=== PATIENT | female | born 1950 ===

== ENCOUNTER 2016-11-28 14:11 | Emergency (ER) | payer OTHER ==
[2016-11-28 14:26] VITALS: TEMP 99.4
--- NOTE | 2016-11-28 14:29 | ED PDOC ---
Arrival/HPI - General Time Seen by Provider: 11/28/16 14:15 Historian: Patient - History of Present Illness Narrative History of Present Illness (Text): 11/28/16 14:25 A 66 year old female, whose past medical history includes diabetes, hypertension and hyperlipidemia, presents to the emergency department complaining of intermittent abdominal pain for the past month. Patient reports her last bowel movement was this morning. Patient denies any fever, chills, loss of appetite, nausea, vomiting, diarrhea, hematuria, hematochezia, vaginal bleeding, chest pain, shortness of breath or any other complaints. Patient states she has been evaluated by her PMD but continues to experience abdominal discomfort. Patient is complaint with her medication. PMD: Dr. Zamora Time/Duration: Other (1 month) Symptom Course: Unchanged, Intermittent Quality: Other Context: Home Past Medical History - Provider Review Nursing Documentation Reviewed: Yes Family/Social History - Physician Review Nursing Documentation Reviewed: Yes Family/Social History: No Known Family HX Allergies/Home Meds Allergies/Adverse Reactions: Allergies No Known Allergies Allergy (Verified 11/28/16 14:26) Home Medications: Home Meds Medication Instructions Recorded Confirmed Glipizide [Glipizide Xl] 5 mg PO DAILY 11/28/16 11/28/16 Insulin Aspart [Novolog Flexpen] 15 unit INJ BID 11/28/16 11/28/16 MetFORMIN [glucoPHAGE] 1,000 mg PO BID 11/28/16 11/28/16 Simvastatin [Zocor] 40 mg PO HS 11/28/16 11/28/16 amLODIPine [Norvasc] 4 mg PO DAILY 11/28/16 11/28/16 cloNIDine [Catapres] 0.2 mg PO BID 11/28/16 11/28/16 Review of Systems - Physician Review All systems were reviewed & negative as marked: Yes - Review of Systems Constitutional: absent: Fevers, Night Sweats Respiratory: absent: SOB Cardiovascular: absent: Chest Pain Gastrointestinal: Abdominal Pain. absent: Diarrhea, Nausea, Vomiting, Appetite Changes, Hematochezia Genitourinary Female: absent: Hematuria, Vaginal Bleeding Physical Exam Vital Signs Reviewed: Yes Vital Signs Temp Pulse Resp BP Pulse Ox 11/28/16 16:12 87 17 163/82 H 98 11/28/16 14:27 165/81 H 11/28/16 14:26 99.4 F 89 16 165/81 H 97 11/28/16 14:25 99.4 F 89 16 97 Temperature: Afebrile Blood Pressure: Hypertensive Pulse: Regular Respiratory Rate: Normal Appearance: Positive for: Well-Appearing, Non-Toxic, Comfortable Pain Distress: None Mental Status: Positive for: Alert and Oriented X 3 - Systems Exam Head: Present: Atraumatic, Normocephalic Pupils: Present: PERRL Extroacular Muscles: Present: EOMI Conjunctiva: Present: Normal Mouth: Present: Moist Mucous Membranes Neck: Present: Normal Range of Motion Respiratory/Chest: Present: Clear to Auscultation, Good Air Exchange. No: Respiratory Distress, Accessory Muscle Use Cardiovascular: Present: Regular Rate and Rhythm, Normal S1, S2. No: Murmurs Abdomen: Present: Normal Bowel Sounds, Scars (Old surgical scar). No: Tenderness, Distention, Peritoneal Signs Back: Present: Normal Inspection Upper Extremity: Present: Normal Inspection. No: Cyanosis, Edema Lower Extremity: Present: Normal Inspection. No: Edema Neurological: Present: GCS=15, CN II-XII Intact, Speech Normal Skin: Present: Warm, Dry, Normal Color. No: Rashes Psychiatric: Present: Alert, Oriented x 3, Normal Insight, Normal Concentration Medical Decision Making ED Course and Treatment: 11/28/16 14:25 Impression: A 66 year old female with intermittent abdominal discomfort. Patient denies nausea, vomiting or diarrhea. No tenderness on exam. Patient recently seen at [facility] for similar abdominal pain, will order CT abdomen and pelvis. Differential Diagnosis included but are not limited to: Chronic abdominal pain secondary to Old abdominal surgery vs. Enteritis vs. UTI Plan: -- Abdomen and pelvis CT -- Labs -- Urinalysis -- Pepcid -- Reassess and disposition Progress Notes: Report Date : 11/28/2016 17:30:43 Procedure: CT Abdomen and Pelvis with contrast Dictator : Mak Aceves MD Impression: No acute findings 11/28/16 17:49 Patient feels much better. She is no longer is having symptoms. After she drank the oral contrast she had several bowel movements that made her feel much better. She is tolerating PO fluids. No vomiting. She will make sure to follow up with her pmd this week. 11/28/16 17:50 She was advised to continue taking the mediations for her suspected UTI. - Lab Interpretations Lab Results: 11/28/16 14:59 11/28/16 14:59 Lab Results 11/28/16 14:59: Sodium 136, Potassium 3.6, Chloride 98, Carbon Dioxide 26, Anion Gap 16, BUN 23 H, Creatinine 1.2, Est GFR ( Amer) 55, Est GFR (Non- Af Amer) 45, Random Glucose 115 H, Calcium 10.0, Total Bilirubin 0.5, AST 32, ALT 32, Alkaline Phosphatase 96, Total Protein 7.7, Albumin 4.0, Globulin 3.7, Albumin/Globulin Ratio 1.1, Lipase 39 11/28/16 14:59: Urine Color Yellow, Urine Appearance Sl cloudy, Urine pH 6.0, Ur Specific [place] 1.025, Urine Protein 100 H, Urine Glucose (UA) Negative, Urine Ketones Trace H, Urine Blood Trace-intact H, Urine Nitrate Negative, Urine Bilirubin Negative, Urine Urobilinogen 0.2, Ur Leukocyte Esterase Moderate H, Urine RBC 0 - 2, Urine WBC 5 - 10, Ur Epithelial Cells 1 - 3, Urine Bacteria Small 11/28/16 14:59: WBC 6.6, RBC 4.11, Hgb 11.2 L, Hct 34.7 L, MCV 84.4, MCH 27.3, MCHC 32.3, RDW 13.4, Plt Count 308, MPV 8.9, Gran % 58.5, Lymph % (Auto) 28.4, [place] % (Auto) 10.7 H, Eos % (Auto) 2.1, Baso % (Auto) 0.3, Gran # 3.83, Lymph # 1.9, [place] # 0.7 H, Eos # 0.1, Baso # 0.02 I have reviewed the lab results: Yes - RAD Interpretation Radiology Orders: 11/28/16 14:26 ABD PELVIS PO & IV CONTRAST [CT] Stat - Medication Orders Current Medication Orders: Discontinued Medications Famotidine (Pepcid) 20 mg IVP STAT STA Stop: 11/28/16 14:27 Last Admin: 11/28/16 14:44 Dose: 20 mg Iohexol (Omnipaque 240 (50 Ml)) Confirm Administered Dose 50 ml .ROUTE .[facility]-MED ONE Stop: 11/28/16 14:33 Iohexol (Omnipaque 350 100 Ml) Confirm Administered Dose 350 mg .ROUTE .[facility]-MED ONE Stop: 11/28/16 16:05 - Scribe Statement The provider has reviewed the documentation as recorded by the Jasminibantione Zuleta Provider Scribe Attestation: All medical record entries made by the Scribe were at my direction and personally dictated by me. I have reviewed the chart and agree that the record accurately reflects my personal performance of the history, physical exam, medical decision making, and the department course for this patient. I have also personally directed, reviewed, and agree with the discharge instructions and disposition. Disposition/Present on Arrival - Present on Arrival Any Indicators Present on Arrival: No - Disposition Have Diagnosis and Disposition been Completed?: Yes Diagnosis: Abdominal pain Disposition: HOME/ ROUTINE Disposition Time: 17:51 Patient Plan: Discharge Patient Problems: Current Active Problems Problem Status Onset Abdominal pain Acute Condition: IMPROVED Discharge Instructions (ExitCare): Abdominal Pain (ED) Additional Instructions: Piyush, thank you for letting us take care of you today. Your provider was Dr. Torres. You were treated for Abdominal Pain. The emergency medical care you received today was directed at your acute symptoms. If you were prescribed any medication, please fill it and take as directed. It may take several days for your symptoms to resolve. Return to the Emergency Department if your symptoms worsen, do not improve, or if you have any other problems. Please contact your doctor or call one of the physicians/clinics you have been referred to that are listed on the Patient Visit Information form that is included in your discharge packet. Bring any paperwork you were given at discharge with you along with any medications you are taking to your follow up visit. Our treatment cannot replace ongoing medical care by a primary care provider (PCP) outside of the emergency department. Thank you for allowing the [facility] team to be part of your care today. If you had an X-Ray or CT scan: A Radiologist will review the ED reading if any change in treatment is needed we will contact you. If you had a blood, urine, or wound culture: It will take several days for the results, if any change in treatment is needed we will contact you. If you had an STI test: It will take 48 hours for the results. Please call after 1 week if you have not heard back. Prescriptions: Aluminum Hydroxide/Magnesium H [Maalox 30 ml] 30 ml PO Q8 #1 bottle Ranitidine HCl [Zantac] 150 mg PO BID PRN #30 tablet PRN Reason: Pain, Mild (1-3) Referrals: Millicent Zamora [Family Provider] - Follow up with primary Forms: [employer] [facility] ([place]ican)
[2016-11-28] MEDS ORDERED: Iohexol 240 (50 ml) ONE (14:32)
[2016-11-28 15:11] LABS: BASO # 0.02 K/mm3 (0.0-2.0); BASO % 0.3 % (0.0-3.0); EOS # 0.1 (0.0-0.7); EOS % 2.1 % (1.5-5.0); GRAN # 3.83 (1.4-6.5); GRAN % 58.5 % (50.0-68.0); HEMOGLOBIN 11.2 gm/dL (12.0-16.0); LYMPH # 1.9 (1.2-3.4); LYMPH % 28.4 % (22.0-35.0); MEAN CELL VOLUME 84.4 fL (80.0-105.0); MEAN CORPUSCULAR HEMOGLOBIN 27.3 pg (25.0-35.0); MEAN CORPUSCULAR HGB CONC 32.3 g/dl (31.0-37.0); MEAN PLATELET VOLUME 8.9 fl (7.0-11.0); MONO # 0.7 (0.1-0.6); MONO % 10.7 % (1.0-6.0); PLATELET COUNT 308 10^3/uL (120.0-450.0); RBC 4.11 10^6/uL (3.5-6.1); RED CELL DISTRIBUTION WIDTH 13.4 % (11.5-14.5); URINE BILIRUBIN NEGATIVE (NEGATIVE); URINE BLOOD TRACE-INTACT (NEGATIVE); URINE GLUCOSE (UA) NEGATIVE (NEGATIVE); URINE LEUKOCYTE ESTERASE MODERATE Leu/uL (NEGATIVE); URINE NITRATE NEGATIVE (NEGATIVE); URINE PROTEIN 100 mg/dL (<30 mg/dL); URINE UROBILINOGEN 0.2 E.U./dL (<1 E.U./dL); WHITE BLOOD COUNT 6.6 10^3/ul (4.5-11.0)
[2016-11-28 15:15] LABS: URINE APPEARANCE SL CLOUDY (CLEAR); URINE COLOR YELLOW (YELLOW)
[2016-11-28 15:20] LABS: ALB/GLOB RATIO 1.1 (1.1-1.8)
[2016-11-28 15:26] LABS: URINE BACTERIA SMALL (NEG); URINE RBC 0 - 2 /hpf (0-2)
[2016-11-28] MEDS ORDERED: Iohexol 350 MG/100 ML VIAL ONE (16:04)
[2016-11-28 16:36] VITALS: O2SAT 98
--- NOTE | 2016-11-28 17:32 | CT ---
PROCEDURE: CT Abdomen and Pelvis with contrast HISTORY: abd pain r/o obstruction/mass COMPARISON: None. TECHNIQUE: Contrast dose: 95 cc of Omni 350 Radiation dose: Total exam DLP = 1129 mGy-cm. This CT exam was performed using one or more of the following dose reduction techniques: Automated exposure control, adjustment of the mA and/or kV according to patient size, and/or use of iterative reconstruction technique. FINDINGS: LOWER THORAX: Unremarkable. LIVER: Unremarkable. No gross lesion or ductal dilatation. GALLBLADDER AND BILE DUCTS: Gallbladder removed PANCREAS: Unremarkable. No gross lesion or ductal dilatation. SPLEEN: Unremarkable. ADRENALS: Unremarkable. No mass. KIDNEYS AND URETERS: Unremarkable. No hydronephrosis. No solid mass. VASCULATURE: Unremarkable. No aortic aneurysm. BOWEL: Unremarkable. No obstruction. No gross mural thickening. APPENDIX: Normal appendix. PERITONEUM: Unremarkable. No free fluid. No free air. LYMPH NODES: Unremarkable. No enlarged lymph nodes. BLADDER: Unremarkable. REPRODUCTIVE: Unremarkable. BONES: No acute fracture. OTHER FINDINGS: There is atrophy of the right-sided spinal erector muscles IMPRESSION: No acute findings
[2016-11-28 17:59] VITALS: BP 162/80; PULSE 85; RESP 18
== END 2016-11-28 18:00 | disposition home or self-care (01) ==
LOC: MERGE 14:11 → ED 14:11
DX: R10.9 Unspecified abdominal pain (principal); I10 Essential (primary) hypertension; E78.5 Hyperlipidemia, unspecified
CPT/HCPCS: 74177; 80053; 81001; 83690; 85025; 87086; 96374; 99285; Q9966; Q9967

== ENCOUNTER 2016-12-03 10:57 | Emergency (ER) | payer OTHER ==
[2016-12-03 11:13] VITALS: RESP 18; TEMP 98.9; O2SAT 99; BMI 45.7
--- NOTE | 2016-12-03 11:34 | ED PDOC ---
Arrival/HPI <Cory Lerma - Last Filed: 12/03/16 12:52> - General Historian: Patient <VÍCOTR DANIELS - Last Filed: 12/03/16 12:57> - General Chief Complaint: Abdominal Pain Time Seen by Provider: 12/03/16 11:00 - History of Present Illness Narrative History of Present Illness (Text): 12/03/16 11:25 Pt is a 66 year old female with past medical history significant for Diabetes, Hypertension and Hyperlipidemia who presents to the emergency department via EMS from her PCP's office for abdominal pain and generalized weakness. She states that she has been experiencing abdominal pain for the past 5-6 weeks. She indicates the pain is mid-epigastric with out radiation. She reports it is tender to palpation and rated as 8/10 with palpation. She reports that her last bowel movement was five days ago. She denied darkened or bloody stool, or difficulty with passing the stool at that time. She admits to passing gas and tolerating oral and food intake. She denies fever, nausea, vomiting, hematemesis. Pt was recently seen and evaluated for abdominal pain at [facility] with in the past week. An abdominal U/S and abdomen and pelvic CT were preformed with out acute findings. Chart review indicated that the patient had been constipated and after drinking IV contrast she began to have multiple bowel movements that relieved her symptoms of abdominal pain. Patient states her presenting symptoms today are similar to previous visit to [facility] emergency department. (VÍCTOR DANIELS) Past Medical History - Provider Review Nursing Documentation Reviewed: Yes - Cardiac Hx Cardiac Disorders: Yes Hx Hypertension: Yes - Pulmonary Hx Respiratory Disorders: No (denies) - Neurological Hx Neurological Disorder: Yes Hx Transient Ischemic Attacks (TIA): Yes (2014) - HEENT Other/Comment: left eye difficulty seeing - glasses - Renal Hx Renal Disorder: No (denies) - Endocrine/Metabolic Hx Endocrine Disorders: Yes Hx Diabetes Mellitus Type 2: Yes - Hematological/Oncological Hx Blood Disorders: No (denies) - Integumentary Hx Dermatological Disorder: No (denies) - Gastrointestinal Hx Gastrointestinal Disorders: Yes Hx Gall Bladder Disease: Yes - Genitourinary/Gynecological Hx Genitourinary Disorders: No (denies) - Psychiatric Hx Psychophysiologic Disorder: Yes Hx Anxiety: Yes Hx Substance Use: No - Surgical History Other/Comment: gallstones 2003 - Anesthesia Hx Anesthesia: Yes <VÍCTOR DANIELS - Last Filed: 12/03/16 12:57> Family/Social History - Physician Review Nursing Documentation Reviewed: Yes Family/Social History: No Known Family HX Smoking Status: Never Smoked Hx Alcohol Use: No Hx Substance Use: No <VÍCTOR DANIELS - Last Filed: 12/03/16 12:57> Allergies/Home Meds <Cory Lerma - Last Filed: 12/03/16 12:52> <VÍCTOR DANIELS - Last Filed: 12/03/16 12:57> Allergies/Adverse Reactions: Allergies No Known Allergies Allergy (Verified 11/27/16 07:37) Home Medications: Home Meds Medication Instructions Recorded Confirmed GlipiZIDE [Glucotrol] 5 mg PO DAILY 11/27/16 11/27/16 MetFORMIN [glucOPHAGE] 1,000 mg PO DAILY 11/27/16 11/27/16 Simvastatin [Zocor] 20 mg PO DAILY 11/27/16 11/27/16 amLODIPine [Norvasc] 5 mg PO DAILY 11/27/16 11/27/16 cloNIDine [clonidine HCl] 0.2 mg PO BID 11/27/16 11/27/16 Glipizide [Glipizide Xl] 5 mg PO DAILY 11/28/16 11/28/16 Insulin Aspart [Novolog Flexpen] 15 unit INJ BID 11/28/16 11/28/16 MetFORMIN [glucoPHAGE] 1,000 mg PO BID 11/28/16 11/28/16 Simvastatin [Zocor] 40 mg PO HS 11/28/16 11/28/16 amLODIPine [Norvasc] 4 mg PO DAILY 11/28/16 11/28/16 cloNIDine [Catapres] 0.2 mg PO BID 11/28/16 11/28/16 Review of Systems - Physician Review All systems were reviewed & negative as marked: Yes - Review of Systems Constitutional: absent: Fatigue, Fevers Cardiovascular: absent: Chest Pain, Palpitations Gastrointestinal: Abdominal Pain, Constipation. absent: Nausea, Vomiting, Hematochezia, Hematemesis, Food Intolerance Genitourinary Female: absent: Dysuria, Frequency, Hematuria, Urine Output Changes Neurological: absent: Headache Endocrine: absent: Diaphoresis <VÍCTOR DANIELS - Last Filed: 12/03/16 12:57> Physical Exam Vital Signs Reviewed: Yes Temperature: Afebrile Blood Pressure: Hypertensive Pulse: Regular Respiratory Rate: Normal Appearance: Positive for: Well-Appearing Pain Distress: Mild Mental Status: Positive for: Alert and Oriented X 3 - Systems Exam Head: Present: Atraumatic, Normocephalic Pupils: Present: PERRL Extroacular Muscles: Present: EOMI Conjunctiva: Present: Normal Neck: Present: Normal Range of Motion. No: MIDLINE TENDERNESS Respiratory/Chest: Present: Clear to Auscultation, Good Air Exchange. No: Respiratory Distress, Accessory Muscle Use Cardiovascular: Present: Regular Rate and Rhythm, Normal S1, S2. No: Murmurs Abdomen: Present: Tenderness (mid epigastric). No: Distention, Normal Bowel Sounds (hypoactive), Peritoneal Signs Upper Extremity: Present: Normal Inspection. No: Cyanosis, Edema Lower Extremity: Present: Normal Inspection. No: Edema Neurological: Present: GCS=15, CN II-XII Intact, Speech Normal Skin: Present: Warm, Dry, Normal Color. No: Rashes Psychiatric: Present: Alert, Oriented x 3, Normal Insight, Normal Concentration <VÍCTOR DANIELS - Last Filed: 12/03/16 12:57> Vital Signs Temp Pulse Resp BP Pulse Ox 12/03/16 12:11 79 18 162/89 H 99 12/03/16 11:12 98.9 F 87 18 164/99 H 99 Medical Decision Making <Cory Lerma - Last Filed: 12/03/16 12:52> <VÍCTOR DANIELS - Last Filed: 12/03/16 12:57> ED Course and Treatment: A 66 year old female with abdominal pain. In agreement with resident note, which includes further HPI details. Patient was seen and evaluated with resident , came up with plan and treatment together. 12/03/16 12:52 Seen and examined with the resident. Our history and physical exam reveals a woman with chronic abdominal pain. Was seen in the emergency department last week and had unrevealing ultrasound and CT scan of the abdomen. She complains of abdominal pain and constipation for several days. She was seen in the office by her PMD this morning and directed to the emergency department. Her abdomen is soft and nontender with no guarding and no rebound. She is morbidly obese. ( Cory Lerma) 12/03/16 11:36 Impression: Pt is a 66 year old female with pmh significant for Diabetes, Hypertension, and Hyperlipidemia who complains of abdominal pain that has been ongoing for the past month. Differential Diagnosis included but are not limited to: - Constipation - SBO Plan: - Labs: CBC, CMP, Mg, Phos, Lipase, Urinalysis - Imaging: Obstruction series - Reassess and disposition Progress Notes: 12/03/16 12:35 - Abdominal xray shows no obstruction - Rectal exam with fecal disimpaction preformed patient reports she was able to pass small amount of stool immediately following (VÍCTOR DANIELS) - Lab Interpretations Lab Results: 12/03/16 11:45 12/03/16 11:45 Lab Results 12/03/16 11:45: Sodium 136, Potassium 3.7, Chloride 99, Carbon Dioxide 27, Anion Gap 14, BUN 20, Creatinine 1.0, Est GFR ( Amer) > 60, Est GFR (Non- Af Amer) 56, Random Glucose 161 H, Calcium 9.7, Phosphorus 3.5, Magnesium 2.1, Total Bilirubin 0.5, AST 43 H, ALT 39, Alkaline Phosphatase 120, Total Protein 7.6, Albumin 3.9, Globulin 3.6, Albumin/Globulin Ratio 1.1, Lipase 46 12/03/16 11:45: WBC 5.7, RBC 4.19, Hgb 11.6 L, Hct 35.5 L, MCV 84.7, MCH 27.7, MCHC 32.7, RDW 13.5, Plt Count 311, MPV 9.2, Gran % 66.6, Lymph % (Auto) 21.1 L , [place] % (Auto) 8.6 H, Eos % (Auto) 3.5, Baso % (Auto) 0.2, Gran # 3.78, Lymph # 1.2, [place] # 0.5, Eos # 0.2, Baso # 0.01 12/03/16 11:31: Urine Color Yellow, Urine Appearance Clear, Urine pH 6.5, Ur Specific [place] 1.015, Urine Protein 100 H, Urine Glucose (UA) Negative, Urine Ketones Negative, Urine Blood Negative, Urine Nitrate Negative, Urine Bilirubin Negative, Urine Urobilinogen 0.2, Ur Leukocyte Esterase Moderate H, Urine RBC Negative, Urine WBC 5 - 10, Ur Epithelial Cells 0 - 2, Urine Bacteria Few - RAD Interpretation Radiology Orders: 12/03/16 11:40 obstructive series [ABD 2 VIEWS (FLAT/UP OR DECUB)] [RAD] Stat - Scribe Statement The provider has reviewed the documentation as recorded by the Scribe <Cory Lerma - Last Filed: 12/03/16 12:52> - PA / SENIOR BOOKKEEPER / Resident Statement MD/DO has reviewed & agrees with the documentation as recorded. MD/DO has examined the patient and agrees with the treatment plan. <VÍCTOR DANIELS - Last Filed: 12/03/16 12:57> - Scribe Statement Jerica Zuleta Provider Scribe Attestation: All medical record entries made by the Scribe were at my direction and personally dictated by me. I have reviewed the chart and agree that the record accurately reflects my personal performance of the history, physical exam, medical decision making, and the department course for this patient. I have also personally directed, reviewed, and agree with the discharge instructions and disposition. (Cory Lerma) Disposition/Present on Arrival <Cory Lerma - Last Filed: 12/03/16 12:52> - Present on Arrival Any Indicators Present on Arrival: No History of DVT/PE: No History of Uncontrolled Diabetes: No Urinary Catheter: No History Surgical Site Infection Following: None - Disposition Have Diagnosis and Disposition been Completed?: Yes Disposition Time: 13:00 <VÍCTOR DANIELS - Last Filed: 12/03/16 12:57> - Disposition Diagnosis: Constipation Disposition: HOME/ ROUTINE Patient Problems: Current Active Problems Problem Status Onset Constipation Acute Condition: GOOD Additional Instructions: Mrs. Pickett, thank you for letting us take care of you today. Your provider was Dr. Daniels and Dr. Lerma. You were treated for constipation. The emergency medical care you received today was directed at your acute symptoms. If you were prescribed any medication, please fill it and take as directed. It may take several days for your symptoms to resolve. Return to the Emergency Department if your symptoms worsen, do not improve, or if you have any other problems. Please contact your doctor or call one of the physicians/clinics you have been referred to that are listed on the Patient Visit Information form that is included in your discharge packet. Bring any paperwork you were given at discharge with you along with any medications you are taking to your follow up visit. Our treatment cannot replace ongoing medical care by a primary care provider (PCP) outside of the emergency department. Thank you for allowing the [facility] team to be part of your care today. Follow up with your primary care provider Referrals: Millicent Zamora [Primary Care Provider] - Follow up with primary
[2016-12-03 11:47] LABS: PH,URINE 6.5 (4.7-8.0); URINE BILIRUBIN NEGATIVE (NEGATIVE); URINE BLOOD NEGATIVE (NEGATIVE); URINE GLUCOSE (UA) NEGATIVE (NEGATIVE); URINE LEUKOCYTE ESTERASE MODERATE Leu/uL (NEGATIVE); URINE NITRATE NEGATIVE (NEGATIVE); URINE PROTEIN 100 mg/dL (<30 mg/dL); URINE UROBILINOGEN 0.2 E.U./dL (<1 E.U./dL)
[2016-12-03 11:53] LABS: BASO # 0.01 K/mm3 (0.0-2.0); BASO % 0.2 % (0.0-3.0); EOS # 0.2 (0.0-0.7); EOS % 3.5 % (1.5-5.0); GRAN # 3.78 (1.4-6.5); GRAN % 66.6 % (50.0-68.0); HEMOGLOBIN 11.6 gm/dL (12.0-16.0); LYMPH # 1.2 (1.2-3.4); LYMPH % 21.1 % (22.0-35.0); MEAN CELL VOLUME 84.7 fL (80.0-105.0); MEAN CORPUSCULAR HEMOGLOBIN 27.7 pg (25.0-35.0); MEAN CORPUSCULAR HGB CONC 32.7 g/dl (31.0-37.0); MEAN PLATELET VOLUME 9.2 fl (7.0-11.0); MONO # 0.5 (0.1-0.6); MONO % 8.6 % (1.0-6.0); PLATELET COUNT 311 10^3/uL (120.0-450.0); RBC 4.19 10^6/uL (3.5-6.1); RED CELL DISTRIBUTION WIDTH 13.5 % (11.5-14.5); WHITE BLOOD COUNT 5.7 10^3/ul (4.5-11.0)
[2016-12-03 11:54] LABS: URINE APPEARANCE CLEAR (CLEAR); URINE COLOR YELLOW (YELLOW)
[2016-12-03 11:56] LABS: URINE BACTERIA FEW (NEG); URINE EPITHELIAL CELLS 0 - 2 /hpf (0-5); URINE RBC NEGATIVE /hpf (0-2)
[2016-12-03 11:59] LABS: ALB/GLOB RATIO 1.1 (1.1-1.8); ALBUMIN 3.9 g/dL (3.0-4.8); ALT/SGPT 39 U/L (7-56); AST/SGOT 43 U/L (15-39); BLOOD UREA NITROGEN 20 mg/dL (7-21); CALCIUM 9.7 mg/dL (8.4-10.5); GFR AFRICAN-AMERICAN > 60; GFR NON-AFRICAN AMERICAN 56; LIPASE 46 U/L (23-300); MAGNESIUM 2.1 mg/dL (1.7-2.2)
[2016-12-03 13:21] VITALS: BP 158/75; PULSE 75
--- NOTE | 2016-12-03 13:45 | RAD ---
HISTORY: constipation COMPARISON: No prior. FINDINGS: BOWEL: Normal. No obstruction. No free air. Residual contrast material is seen in multiple diverticula in the sigmoid colon BONES: Normal. OTHER FINDINGS: None. IMPRESSION: No active disease.
== END 2016-12-03 13:16 | disposition home or self-care (01) ==
LOC: ED 10:57
DX: K59.00 Constipation, unspecified (principal); I10 Essential (primary) hypertension; E11.9 Type 2 diabetes mellitus without complications

== ENCOUNTER 2016-12-10 13:38 | Emergency (ER) | payer OTHER ==
[2016-12-10 13:39] VITALS: BMI 45.7
[2016-12-10 13:47] VITALS: RESP 18; TEMP 98.3; O2SAT 100
--- NOTE | 2016-12-10 14:38 | ED PDOC ---
Arrival/HPI - General Historian: Patient - History of Present Illness Time/Duration: > week Symptom Onset: Gradual Symptom Course: Unchanged Context: Home <Andrew Deng - Last Filed: 12/10/16 16:44> <IoanaginaAlphonse - Last Filed: 12/10/16 19:04> - General Chief Complaint: Abdominal Pain Time Seen by Provider: 12/10/16 14:03 - History of Present Illness Narrative History of Present Illness (Text): 66 F with PMH of DM, HTN, HLD presents to ED with complaint of epigastric pain. Patient states this has been going on for last 2 weeks. She has been to ER 3 times for same problem. Patient had a CT scan done on 12/03 and was unremarkable. Patient reports that today she called the ambulance because she was experiencing the pain again. She has not been taking the medication she was discharged on previously. Pain is mild in the epigastric region without radiation. She has associated nausea. Patient is unsure if pain is associated with eating. She states she had 1 non-bloody, non-bilious episode of vomiting in ambulance. 12/10/16 16:44 (Andrew Deng) Past Medical History - Provider Review Nursing Documentation Reviewed: Yes - Travel History Have you recently traveled outside [place] w/in the past 3 mons?: No - Cardiac Hx Cardiac Disorders: Yes Hx Hypertension: Yes - Pulmonary Hx Respiratory Disorders: No (denies) - Neurological Hx Neurological Disorder: Yes Hx Transient Ischemic Attacks (TIA): Yes (2013) - HEENT Other/Comment: left eye difficulty seeing - glasses - Renal Hx Renal Disorder: No (denies) - Endocrine/Metabolic Hx Endocrine Disorders: Yes Hx Diabetes Mellitus Type 2: Yes - Hematological/Oncological Hx Blood Disorders: No (denies) - Integumentary Hx Dermatological Disorder: No (denies) - Gastrointestinal Hx Gastrointestinal Disorders: Yes Hx Gall Bladder Disease: Yes - Genitourinary/Gynecological Hx Genitourinary Disorders: No (denies) - Psychiatric Hx Psychophysiologic Disorder: Yes Hx Anxiety: Yes Hx Substance Use: No - Surgical History Other/Comment: gallstones 2003 - Anesthesia Hx Anesthesia: Yes <Andrew Deng - Last Filed: 12/10/16 16:44> Family/Social History - Physician Review Nursing Documentation Reviewed: Yes Family/Social History: Unknown Family HX Smoking Status: Never Smoked Hx Alcohol Use: No Hx Substance Use: No <CorazonjulietAndrew - Last Filed: 12/10/16 16:44> Allergies/Home Meds <CorazongregoriorameshAndrew - Last Filed: 12/10/16 16:44> <Hang Carrascoiy - Last Filed: 12/10/16 19:04> Allergies/Adverse Reactions: Allergies No Known Allergies Allergy (Verified 11/27/16 07:37) Home Medications: Home Meds Medication Instructions Recorded Confirmed GlipiZIDE [Glucotrol] 5 mg PO DAILY 11/27/16 12/10/16 MetFORMIN [glucOPHAGE] 1,000 mg PO DAILY 11/27/16 12/10/16 Simvastatin [Zocor] 20 mg PO DAILY 11/27/16 12/10/16 amLODIPine [Norvasc] 5 mg PO DAILY 11/27/16 12/10/16 Glipizide [Glipizide Xl] 5 mg PO DAILY 11/28/16 12/10/16 Insulin Aspart [Novolog Flexpen] 15 unit INJ BID 11/28/16 12/10/16 MetFORMIN [glucoPHAGE] 1,000 mg PO BID 11/28/16 12/10/16 cloNIDine [Catapres] 0.2 mg PO BID 11/28/16 12/10/16 Review of Systems - Review of Systems Constitutional: absent: Fatigue, Weight Change, Fevers Eyes: absent: Vision Changes, Photophobia, Eye Pain ENT: absent: Hearing Changes, Tinnitus, TMJ Pain Respiratory: absent: SOB, Cough, Sputum Cardiovascular: absent: Chest Pain, Palpitations, Edema Gastrointestinal: Abdominal Pain, Nausea, Vomiting. absent: Stool Changes, Constipation, Diarrhea, Hematochezia, Hematemesis Genitourinary Female: absent: Dysuria, Frequency, Hematuria Musculoskeletal: absent: Arthralgias, Back Pain, Neck Pain, Joint Swelling Skin: absent: Rash, Pruritis, Skin Lesions, Laceration Neurological: absent: Headache, Dizziness, Focal Weakness Endocrine: absent: Diaphoresis, Polyuria, Polydipsia Hemo/Lymphatic: absent: Adenopathy, Easy Bleeding, Easy Bruising Psychiatric: absent: Anxiety, Depression, Suicidal Ideation <Andrew Deng - Last Filed: 12/10/16 16:44> Physical Exam Vital Signs Reviewed: Yes Temperature: Afebrile Blood Pressure: Hypertensive Pulse: Tachycardic Respiratory Rate: Normal Appearance: Positive for: Non-Toxic, Comfortable Pain Distress: Mild Mental Status: Positive for: Alert and Oriented X 3 - Systems Exam Head: Present: Atraumatic, Normocephalic Pupils: Present: PERRL Extroacular Muscles: Present: EOMI Conjunctiva: Present: Normal Mouth: Present: Moist Mucous Membranes Neck: Present: Normal Range of Motion, Trachea Midline Respiratory/Chest: Present: Clear to Auscultation Cardiovascular: Present: Normal S1, S2, Peripheal Pulses Present, Tachycardic Abdomen: Present: Tenderness (epigastrium), Normal Bowel Sounds, Scars (midline incision from laparotomy). No: Distention, Peritoneal Signs, Rebound, Guarding Back: No: CVA Tenderness Upper Extremity: Present: Normal ROM, NORMAL PULSES, Neurovascularly Intact, Capillary Refill < 2s Lower Extremity: Present: NORMAL PULSES, Normal ROM, Neurovascularly Intact, Capillary Refill < 2 s Neurological: Present: GCS=15, CN II-XII Intact, Speech Normal, Motor Func Grossly Intact, Normal Sensory Function Skin: Present: Warm, Dry, Normal Color Lymphatic: No: Cervical Adenopathy, Axillary Adenopathy, Inguinal Adenopathy Psychiatric: Present: Alert, Oriented x 3 <Andrew Deng - Last Filed: 12/10/16 16:44> <Alphonse Carrasco - Last Filed: 12/10/16 19:04> Vital Signs Temp Pulse Resp BP Pulse Ox 12/10/16 17:50 79 18 165/79 H 100 12/10/16 16:17 89 18 168/89 H 100 12/10/16 15:01 96 H 18 172/96 H 100 12/10/16 13:46 98.3 F 100 H 18 180/104 H 100 Medical Decision Making <Andrew Deng - Last Filed: 12/10/16 16:44> <Alphonse Carrasco - Last Filed: 12/10/16 19:04> ED Course and Treatment: EKG, CBC, CMP, Lipase Pepcid Zofran (Andrew Deng) Patient seen and examined with resident. Came up with treatment and disposition plan with resident. pt with epigastric abd pain reproducible with palpation. States pain worst with PO. Had nausea today. On reeval abd soft/nt/nd pt tolerating PO without difficulty previous records reviewed, pt was in the ER for similar complaint on 11/28/[address] abd/pelvis done with no acute findings pt states she no longer wants to stay in the ER and wishes to be dc'd home refused further w/u and imaging states she had a referral for dietary/speeder tender and GI specialist from her PMD Pt states she understands to return to the ER right away for new or worsening symptoms or for inability to f/u with PMD or specialist as instructed. Patient states that she fully agrees with and understands discharge instructions. States that she agrees with the plan and disposition. Verbalized and repeated discharge instructions and plan. I have given the patient opportunity to ask any additional questions. (Alphonse Carrasco) - Lab Interpretations Lab Results: 12/10/16 18:13 12/10/16 18:13 Lab Results 12/10/16 18:13: Sodium 137, Potassium 4.1, Chloride 102, Carbon Dioxide 25, Anion Gap 14, BUN 22 H, Creatinine 0.9, Est GFR ( Amer) > 60, Est GFR ( Non-Af Amer) > 60, Random Glucose 88, Calcium 10.0, Total Bilirubin 0.5, AST 25 , ALT 29, Alkaline Phosphatase 104, Total Protein 6.8, Albumin 3.6, Globulin 3.2 , Albumin/Globulin Ratio 1.1, Lipase 47 12/10/16 18:13: WBC 6.5, RBC 4.04, Hgb 11.0 L, Hct 33.4 L, MCV 82.7, MCH 27.2, MCHC 32.9, RDW 13.8, Plt Count 297, MPV 8.8, Gran % 62.8, Lymph % (Auto) 24.5, [place] % (Auto) 8.7 H, Eos % (Auto) 3.7, Baso % (Auto) 0.3, Gran # 4.09, Lymph # 1.6, [place] # 0.6, Eos # 0.2, Baso # 0.02 - Medication Orders Current Medication Orders: Discontinued Medications Famotidine (Pepcid) 20 mg IVP STAT STA Stop: 12/10/16 14:37 Last Admin: 12/10/16 16:28 Dose: 20 mg Ondansetron HCl (Zofran Inj) 4 mg IVP STAT STA Stop: 12/10/16 14:38 Last Admin: 12/10/16 16:28 Dose: 4 mg Disposition/Present on Arrival - Present on Arrival History of DVT/PE: No History of Uncontrolled Diabetes: No Urinary Catheter: No History Surgical Site Infection Following: None <Andrew Deng - Last Filed: 12/10/16 16:44> - Present on Arrival Any Indicators Present on Arrival: No - Disposition Have Diagnosis and Disposition been Completed?: Yes Disposition Time: 19:03 Patient Plan: Discharge <Alphonse Carrasco - Last Filed: 12/10/16 19:04> - Disposition Diagnosis: Abdominal pain Disposition: HOME/ ROUTINE Condition: GOOD Discharge Instructions (ExitCare): Abdominal Pain (ED) Additional Instructions: PLEASE RETURN TO THE EMERGENCY DEPARTMENT FOR NEW OR WORSENING SYMPTOMS. RETURN RIGHT AWAY IF YOU CANNOT FOLLOW UP WITH YOUR PRIMARY CARE DOCTOR, CLINIC, OR SPECIALIST IN 1-2 DAYS. Referrals: Millicent Zamora [Primary Care Provider] - Follow up with primary Curtis Sheikh MD [Staff Provider] - Follow up with primary
[2016-12-10 17:51] VITALS: BP 165/79; PULSE 79
[2016-12-10 18:20] LABS: BASO # 0.02 K/mm3 (0.0-2.0); BASO % 0.3 % (0.0-3.0); EOS # 0.2 (0.0-0.7); EOS % 3.7 % (1.5-5.0); GRAN # 4.09 (1.4-6.5); GRAN % 62.8 % (50.0-68.0); LYMPH # 1.6 (1.2-3.4); LYMPH % 24.5 % (22.0-35.0); MEAN CELL VOLUME 82.7 fL (80.0-105.0); MEAN CORPUSCULAR HEMOGLOBIN 27.2 pg (25.0-35.0); MEAN CORPUSCULAR HGB CONC 32.9 g/dl (31.0-37.0); MEAN PLATELET VOLUME 8.8 fl (7.0-11.0); MONO # 0.6 (0.1-0.6); MONO % 8.7 % (1.0-6.0); PLATELET COUNT 297 10^3/uL (120.0-450.0); RBC 4.04 10^6/uL (3.5-6.1); RED CELL DISTRIBUTION WIDTH 13.8 % (11.5-14.5); WHITE BLOOD COUNT 6.5 10^3/ul (4.5-11.0)
[2016-12-10 18:28] LABS: ALB/GLOB RATIO 1.1 (1.1-1.8); ALBUMIN 3.6 g/dL (3.0-4.8); ALT/SGPT 29 U/L (7-56); AST/SGOT 25 U/L (15-39); BLOOD UREA NITROGEN 22 mg/dL (7-21); GFR AFRICAN-AMERICAN > 60; GFR NON-AFRICAN AMERICAN > 60; LIPASE 47 U/L (23-300)
--- NOTE | 2016-12-10 18:39 | CARD ---
APPROVED REPORT EKG Measurement Heart [id number] <Conclusion> Sinus tachycardia Left axis deviation Anterolateral infarct, age undetermined Abnormal ECG
== END 2016-12-10 20:46 | disposition home or self-care (01) ==
LOC: ED 13:38
DX: R10.13 Epigastric pain (principal); E11.9 Type 2 diabetes mellitus without complications; I10 Essential (primary) hypertension; E78.5 Hyperlipidemia, unspecified
CPT/HCPCS: 80053; 83690; 85025; 93005; 96374; 96375; 99284; J2405